=== PATIENT | male | born 1980 | race Caucasian/White ===

== ENCOUNTER 2021-03-12 06:04 | Emergency (ER) | payer SELFPAY ==
[2021-03-12 06:34] VITALS: BP 136/80; PULSE 82; RESP 17; TEMP 36.9; O2SAT 98; BMI 35.4
--- NOTE | 2021-03-12 07:02 | ED_ITS ---
HPI - General Adult General: Chief complaint: Extremity Injury, Upper Stated complaint: Pain in both arms Time Seen by Provider: 03/12/21 06:05 History of Present Illness: HPI narrative: Patient is a 41-year-old male with a history of bilateral carpal tunnel syndrome who presents emergency room with complaints of breakthrough pain x3 days and insomnia. Patient says that he has not been able to get sleep last few because of worsening shooting pain from the wrist up to his arms bilaterally. Patient has an orthopedic provider for which she sees in [place] and is scheduled for an appointment. Onset:3 days Duration:3 days Location:home Severity:mild Review of Systems Narrative: Constitutional: No fever, no chills. HEENT: No vision changes CV: No chest pain, no palpitations PULM: no cough, no dyspnea. GI: No abdominal pain, no N/V/D. : No dysuria MSKEL: No muscle pain, +b/l wrist pain SKIN: No new rashes, no lesions. NEURO: No headache, no focal weakness. HEME: No visible bruises PSYCH: Normal mood Physical Exam Narrative: EXAM NARRATIVE: Head: Atraumatic Eyes: PERRL, conjunctiva without injection ENT: Mucous membrane moist NECK: Supple, ROM intact LUNGS: LCTAB, no crackles/rhonchi CV: RRR ABDOMEN: Soft, nontender in all quadrants EXTREMITY: Normal ROM, 2+ radial pulses b/l, r/u/m sensations intact b/l, +patient able to perform OK/Thumbs Up/ Scissor/Fist signs b/l without any difficulties SKIN: No rash or erythema NEURO: Awake and alert, no focal motor deficits PSYCH: Normal mood and affect Course Vital Signs: Vital signs: Vital Signs Temperature 98.4 F 03/12/21 06:34 Pulse Rate 82 03/12/21 06:34 Respiratory Rate 17 03/12/21 06:34 Blood Pressure 136/80 03/12/21 06:34 Pulse Oximetry 98 03/12/21 06:34 MDM - General Adult MDM Narrative: Medical decision making narrative: 41-year-old male with a history of bilateral carpal tunnel syndrome presenting to the emergency room with acute breakthrough pain. Patient says that he takes Tylenol, ibuprofen, anything without any relief of symptoms. Patient specifically request for Percocet 7.5 mg every 6 hours today. I do not suspect acute median nerve entrapment currently as patient has full sen armando functions of the digits bilaterally. Have offered patient x-ray as well as follow-up with her orthopedic provider and primary care provider for further evaluation. Patient declined this time. I have given patient a prescription for prednisone 10mg daily x5 days and Percocet 2.5-325 x 3 tablets. Disposition: Discharge. Patient is given strict precautions for any signs of acute median nerve entrapment. If he has any worsening symptoms come back to the emergency room. Discharge Plan Discharge Patient Disposition: Home Clinical Impression: Carpal tunnel syndrome Condition: Stable Prescriptions: New prednisone 10 mg tablet 10 mg PO DAILY PRN (Reason: carpel tunnel) Qty: 5 RF: 0 Percocet 2.5-325 mg tablet 1 tab PO TID PRN (Reason: pain) Qty: 3 RF: 0 Discharge Orders: Discharge ED (Routine); Ordered 03/12/21 Ordered By: Trista Dasilva Discharge Diet: Advance as tolerated Discharge Activity: Resume usual activity Patient Instructions: Opioid Safety Activity Restrictions/Additional Instructions: Come back to the ER if your pain worsens. Coding Level of Care Code ED Site Coordinator for Lenore Mcgregor
== END 2021-03-12 07:28 | disposition home or self-care (01) ==
PROVIDERS: Emergency Provider Emergency Medicine
DX: G56.03 Carpal tunnel syndrome, bilateral upper limbs (principal)
CPT/HCPCS: 99281